=== PATIENT | female | born 1960 | race Caucasian/White ===

== ENCOUNTER 2017-02-15 18:49 | Observation (INO) ==
[2017-02-15] MEDS ORDERED: Sodium Chloride 0.9% 1,000 ML ONE (18:52)
[2017-02-15] MEDS ORDERED: HYDROmorphone 2 MG/1 ML ONE ×2 (18:53→20:47)
[2017-02-15] MEDS: HYDROmorphone 2 MG/1 ML IVP PRN ×3 (19:00→20:50)
[2017-02-15] MEDS ORDERED: Sodium Chloride 0.9% 1,000 ML PRIMARY IV ONE (21:16)
[2017-02-15] MEDS ORDERED: KETAMINE 100 MG/1 ML - 5 ML ONE (22:25)
[2017-02-15] MEDS ORDERED: fentaNYL Inj 100 MCG/2 ML VIAL ONE (22:26)
[2017-02-15] MEDS ORDERED: MIDAZOLAM 5 MG/1 ML ONE (22:26)
[2017-02-15] MEDS ORDERED: KETOROLAC 30 MG/1 ML VIAL ONE (23:30)
[2017-02-15] MEDS ORDERED: ONDANSETRON 4 MG/2 ML VIAL ONE (23:51)
[2017-02-15] MEDS ORDERED: Lactated Ringers 500 ML PRIMARY IV ONE (23:54)
[2017-02-16] MEDS ORDERED: methylPREDNISolone ACETATE 40 MG/1 ML VIAL IM ONE (00:22)
[2017-02-16] MEDS ORDERED: methylPREDNISolone 125 MG/2 ML VIAL ONE (00:23)
[2017-02-16] MEDS ORDERED: MIDAZOLAM 5 MG/1 ML ONE (01:09)
[2017-02-16] MEDS ORDERED: KETAMINE 100 MG/1 ML - 5 ML ONE (01:15)
[2017-02-16] MEDS ORDERED: LORazepam 1 MG TABLET PO PRN (02:07)
[2017-02-16] MEDS ORDERED: diphenhydrAMINE 25 MG CAPSULE PO PRN (02:40)
[2017-02-16] MEDS ORDERED: Ondansetron ODT Tab 8 MG TAB PO PRN (02:40)
[2017-02-16] MEDS ORDERED: CALCIUM CARBONATE 500 MG (TUMS) CHEWABLE TABLET PO PRN (02:40)
[2017-02-16] MEDS ORDERED: Prochlorperazine Tab 10 MG TAB PO PRN (02:40)
[2017-02-16] MEDS ORDERED: MAG HYDROX/AL HYDROX/SIMETH 30 ML SUSP PO PRN (02:40)
[2017-02-16] MEDS ORDERED: BISACODYL 5 MG TABLET PO PRN (02:40)
[2017-02-16] MEDS ORDERED: BISACODYL 10 MG SUPPOSITORY RECTAL PRN (02:40)
[2017-02-16] MEDS: HYDROmorphone 2 MG/1 ML IVP PRN ×8 (03:17→20:25)
[2017-02-16] MEDS: KETOROLAC 15 MG/1 ML VIAL IVP PRN ×3 (03:19→17:37)
[2017-02-16] MEDS: ONDANSETRON 4 MG/2 ML VIAL IVP PRN ×2 (03:19→17:36)
[2017-02-16] MEDS: HYDROmorphone 2 MG TABLET PO PRN ×2 (06:40→13:48)
--- NOTE | 2017-02-16 08:10 | ORTHO.PROG ---
Last Taken Vital Signs: Vital Signs - Last Taken Temperature 97.2 F 02/16/17 07:48 Pulse Rate 65 02/16/17 07:48 Respiratory Rate 16 02/16/17 07:48 Blood Pressure 100/60 02/16/17 07:48 Pulse Ox 99 02/16/17 07:48 Subjective: Patient notes pain feeling markedly better from last night after first reduction. She notes that she still has the numbness and tingling into the fingertips on the right. She notes some mild numbness of the ulnar nerve and median nerve. Normal on the left. She generally feels the pain on the right is worse than the pain on the left Objective: Examination shows that the patient's splints are in place she has no evidence of irritation from the splints. On the right hand she has extension of the digits passively with movement with flexion she seems to do fine on the lateral aspect of her she can extend but she complains of some discomfort dorsally with extension of the fingers. Actively was causes pain also. Sensory exam decreased the thumb through the small finger, brisk refill. Patient with some swelling of the fingers on the right. Very similar to last.. Examination left wrist show splint in place no evidence of irritation digits extension good flexion and sensory exam is intact. Patient with brisk refill. Radiographs which were obtained with the C-arm last PM show that the sugar tong splints are in place neutral alignment of the wrist on the AP views he seemed to be anatomically reduced and on the lateral there is some slight loss of volar tilt to neutral position bilaterally Assessment: Bilateral wrist fractures reduced. Patient in sugar tong splints with improved pain control Plan: At the current time patient will continue with the ice elevation sling use and see how she does with mobilization whether she requires IV medication. We'll check on her this afternoon and see how she progresses. Ice and elevation. We discussed potential surgical intervention but this may be something she wants to do at home town area. I would recommend CT scans for further evaluation. I don't think she could tolerate them at the current time.
[2017-02-16] MEDS: GABAPENTIN 300 MG CAPSULE PO SCH ×4 (08:15→21:10)
[2017-02-16] MEDS: PENTOSAN POLYSULFATE 100 MG PO SCH ×3 (08:16→20:35)
[2017-02-16] MEDS: DULOXETINE HCL 20 MG PO SCH (08:16)
--- NOTE | 2017-02-16 08:28 | CONSULT ---
Consult Note - Consult Consult Date: 02/16/17 Reason for Consult: PostOp Consulation : Ortho Requesting Physician: Dr. Hermosillo Primary Care Provider: DR MUKHERJEE IN TABLE - History of Present Illness History of Present Illness: This is a 56 years old female with past medical history significant for history of migraines, peripheral neuropathy and interstitial cystitis she is from [place] who was in [place] visiting, she fell yesterday backward and that caused bilateral wrist fractures. She had the reductions done last night she was complaining from severe pain post surgery Dr. Arana measured the pressure and was normal. Apparently she improved after that and she was admitted for observation. The hospitalist service were consulted for management of medical issues. Currently she still complaining from pain in both wrists she got some oral Dilaudid and Toradol earlier. She had some mild nausea yesterday. No other symptoms. Past Medical History Medical History: 1. Peripheral neuropathy she said it was secondary to Levaquin that she had for pneumonia. 2. Migraines. 3. Interstitial cystitis Surgical History: 1. Appendectomy. 2. Tonsillectomy. 3. C-sections. 4. Partial gastrectomy for bleeding ulcers. 5. Intestinal obstruction that needed surgery Family History: Reviewed an Not Pertinent Past Social History: Does not smoke, doesn't drink nor drugs. She is from [place] visiting a friend. 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 Tobacco Use: Former Smoker Substance Use Type: None Alcohol Use: None Review of Systems - Review of Systems All Systems: Reviewed & No Additional Complaints Except as Stated Medication / Allergies Home Medications: Home Medications Medication Instructions Recorded Confirmed Type Duloxetine HCl 20 mg PO DAILY 02/16/17 02/16/17 History Gabapentin [Neurontin] 300 mg PO BEDTIME 02/16/17 02/16/17 History Gabapentin [Neurontin] 600 mg PO TID 02/16/17 02/16/17 History Mirtazapine [Remeron] 15 mg PO DAILY 02/16/17 02/16/17 History Pentosan Polysulfate Sodium 100 mg PO TID 02/16/17 02/16/17 History [Elmiron] Allergies/Adverse Reactions: Allergies Allergy/AdvReac Type Severity Reaction Status Date / Time levofloxacin [From Levaquin] Allergy Anaphylaxis Verified 02/16/17 06:21 Penicillins Allergy Anaphylaxis Verified 02/16/17 06:21 codeine AdvReac Intermediate VOMITING Verified 02/16/17 06:21 cefaclor [From Ceclor] AdvReac HIVES Verified 02/16/17 06:21 erythromycin base AdvReac VOMITING Verified 02/16/17 06:21 nitrofurantoin AdvReac HIVES Verified 02/16/17 06:21 macrocrystalline [From Macrodantin] Exam - Vitals Vital Signs: Vital Signs Temperature 97.2 F Temperature Source Temporal Artery Scan Pulse Rate [Pulse Oximeter 65 Right] Respiratory Rate 16 Blood Pressure [Left Calf] 100/60 Pulse Ox 99 Oxygen Flow Rate 3 Oxygen Delivery Method Nasal Cannula Height 5 ft 5 in Weight 142 lb - General General Appearance: POSITIVE: No Acute Distress, Cooperative, Thin - Head Head Exam: POSITIVE: Normal Inspection - Eye Eye Exam: POSITIVE: Normal Appearance - ENT ENT Exam: POSITIVE: Normal Exam - Neck Neck Exam: POSITIVE: Normal Inspection - Respiratory Respiratory Exam: POSITIVE: Clear to Auscultation - Bilaterally - Cardiovascular Cardiovascular Exam: POSITIVE: RRR - GI/Abdominal GI/Abdominal Exam: POSITIVE: Normal Bowel Sounds, Non Tender, Non Distended, Soft - Rectal Rectal Exam: POSITIVE: Deferred - External Exam: POSITIVE: Deferred - Extremities Additional Extremities Exam Details: Both the forearms and splints. Complain from decreased sensation in the right thumb. - Neurological Neurological Exam: POSITIVE: Alert, CN II-XII Intact, No Facial Droop, Speech Intact / Clear - Psychiatric Psychiatric Exam: POSITIVE: Normal Affect - Integumentary Integumentary Exam: POSITIVE: Normal Color Assessment and Plan - Patient Problems (1) Wrist fracture, bilateral Current Visit: Yes Status: Acute Comment: She status post reduction. Continue current pain medications. Will discuss with Dr. Hermosillo but likely she'll stay another night to make sure her pain is controlled and maybe home tomorrow. (2) Peripheral neuropathy Current Visit: Yes Status: Acute Comment: Continue previous medications. (3) Interstitial cystitis Current Visit: Yes Status: Acute Comment: Continue same medications
[2017-02-16] MEDS ORDERED: Mirtazapine Tab 15 MG TAB PO SCH (09:00)
--- NOTE | 2017-02-16 10:32 | CRNA.PROGR ---
Anesthesia Note Anesthesia Progress Note: Awake, being fed by "friend". No nausea. Still rates pain in Right wrist an 8 out of 10. Planning on going to [facility] for further treatment of wrist injuries.
[2017-02-16] MEDS: Lactated Ringers 1,000 ML PRIMARY IV SCH ×2 (11:13→20:27)
--- NOTE | 2017-02-16 19:07 | ORTHO.PROG ---
Last Taken Vital Signs: Vital Signs - Last Taken Temperature 99.2 F 02/16/17 18:59 Pulse Rate 76 02/16/17 18:59 Respiratory Rate 20 02/16/17 18:59 Blood Pressure 100/45 02/16/17 18:59 Pulse Ox 96 02/16/17 18:59 Subjective: Patient notes that she still has pain but was doing better in the morning seems to be a little bit more uncomfortable this afternoon since she's been up moving around. She notes movement of the fingers has improved her sensory exam on the left hand is pretty much normal she notes the small finger and ring finger are almost a pretty much back to normal she still has a symptoms into the thumb index and middle finger. She notes a swelling is coming down and her motion has improved. Objective: Examination shows that her swelling of the right hand has improved he still is some swelling of the fingers of left hand no significant swelling splint is in place. She has good motion of the fingers on the left on the right she has good extension and she can flex at the limits of the splint. She has pretty much sensation in the small finger some slight decreased sensation on the radial aspect of the ring finger but improved as well as the middle finger and index finger and thumb but still quite a limited. She has good motion of the thumb. Brisk refill. There is no evidence of passive stretch pain. Examination shows that her hip has good range of motion she can actively internal/external rotated but she complains of some discomfort when she internally rotates the hip in the groin region in the buttock region. Motor and sensory exam is nonfocal. Internal rotation is about 30 of external rotation is about 40. Assessment: Bilateral wrist fractures with median nerve contusion on right Plan: Patient is still requiring IV medication for pain control she is quite wide- awake with normal vital signs with the doses of the IV medication. Patient seems quite comfortable and good movement of the fingers and examination with her pain level at 7. We will obtain AP pelvis and an AP and frog of the right hip. Possible CT scan of the upper extremities. We will see about options for home health if she gets discharged home on Tuesday or tomorrow. As a discussed with the patient we would need to have her off IV narcotics prior to being able to discharge her home
[2017-02-16] MEDS: LORazepam 1 MG TABLET PO PRN (20:36)
[2017-02-16] MEDS ORDERED: GABAPENTIN 300 MG CAPSULE PO SCH (21:00)
[2017-02-17] MEDS: HYDROmorphone 2 MG/1 ML IVP PRN ×5 (01:31→13:25)
[2017-02-17] MEDS: Lactated Ringers 1,000 ML PRIMARY IV SCH ×4 (05:54→17:18)
[2017-02-17] MEDS: ACETAMINOPHEN 325 MG TABLET PO PRN (05:54)
[2017-02-17] MEDS: HYDROmorphone 2 MG TABLET PO PRN ×4 (06:53→21:04)
[2017-02-17] MEDS: KETOROLAC 15 MG/1 ML VIAL IVP PRN ×2 (08:07→17:36)
--- NOTE | 2017-02-17 08:13 | DI ---
AP PELVIS and RIGHT HIP, 02/17/2017 7:00 AM: Clinical History: Right hip pain. Injury to the right hip. The patient fell. Previous Exam: None at this facility. There is no soft tissue abnormality. The bony structures of the pelvis are normal. 2 views of the rig ht hip are normal. Reading: Normal right hip exam. The AP pelvis view is unremarkable.
[2017-02-17 08:34] LABS: BASOPHILS # (AUTO) 0.04 10*3/UL; BASOPHILS % (AUTO) 0.7 % (0-1); EOSINOPHILS # (AUTO) 0.02 10*3/UL; EOSINOPHILS % (AUTO) 0.4 % (0-8); Hematocrit [HCT] 28.7 % (37.0-47.0); Hemoglobin [HGB] 8.9 g/dL (12.0-16.0); LYMPHOCYTES # (AUTO) 1.45 10*3/uL; MEAN CORPUSCULAR HEMOGLOBIN 28.6 PG (27-31); MEAN CORPUSCULAR VOLUME 92.3 FL (81-99); MEAN PLATELET VOLUME 9.5 FL (7.4-12.2); MONOCYTES # (AUTO) 0.44 10*3/UL (0.3-0.8); MONOCYTES % (AUTO) 8.1 % (5-15); NEUTROPHILS # (AUTO) 3.44 10*3/UL; NEUTROPHILS % (AUTO) 63.7 % (50-80); RED BLOOD COUNT 3.11 10^6/uL (4.20-5.40)
[2017-02-17 08:41] LABS: PLATELET MORPHOLOGY COMMENT NORMAL MORPHOLOGY (NORM); RBC MORPHOLOGY COMMENT NORMAL MORPHOLOGY (NORM); WBC MORPHOLOGY COMMENT NORMAL MORPHOLOGY (NORM)
[2017-02-17 09:00] LABS: BLOOD UREA NITROGEN 15 mg/dL (7-22); SERUM ALBUMIN 2.4 g/dL (3.5-4.8)
--- NOTE | 2017-02-17 09:15 | PDOC(PROG) ---
Date and Time of Service: 02/17/2017 9:12 AM Interval History: Subjective Patient continued to have pain in her wrists she is getting pain medication. Setting some headaches he said also. No bowel movement yet. Denying shortness of breath. She lives alone in [place]. Objective : Data - Labs CBC and BMP: 02/17/17 08:30 02/17/17 08:30 Labs - Last 24 Hours: Laboratory Results 02/17/17 Range/Units 08:30 WBC 5.40 (4.8-10.8) 10^3/uL RBC 3.11 L (4.20-5.40) 10^6/uL Hgb 8.9 L (12.0-16.0) g/dL Hct 28.7 L (37.0-47.0) % MCV 92.3 (81-99) FL MCH 28.6 (27-31) PG MCHC 31.0 L (33-37) g/dL RDW Std Deviation 47.1 (39-50) fL RDW Coeff of Sharon 14.5 (11.5-14.5) % Plt Count 232 (140-350) 10*3/uL MPV 9.5 (7.4-12.2) FL Immature Gran % (Auto) 0.2 (0-5) % Neut % (Auto) 63.7 (50-80) % Lymph % (Auto) 26.9 (10-50) % Rush % (Auto) 8.1 (5-15) % Eos % (Auto) 0.4 (0-8) % Baso % (Auto) 0.7 (0-1) % Immature Gran # (Auto) 0.01 10*3/UL Neut # (Auto) 3.44 10*3/UL Lymph # (Auto) 1.45 10*3/uL Rush # (Auto) 0.44 (0.3-0.8) 10*3/UL Eos # (Auto) 0.02 10*3/UL Baso # (Auto) 0.04 10*3/UL WBC Morphology Comment Normal morphology (NORM) Plt Morphology Comment Normal morphology (NORM) RBC Morph Comment Normal morphology (NORM) Sodium 136 (135-145) meq/L Potassium 3.4 L (3.8-5.2) meq/L Chloride 108 (98-112) meq/L Carbon Dioxide 22 L (23-33) meq/L Anion Gap 6 (5-20) BUN 15 (7-22) mg/dL Creatinine 0.6 (0.50-1.20) mg/dL Estimated GFR > 60 (>60 ml/min/1.73m(2)) BUN/Creatinine Ratio 25.00 H (6-20) Glucose 81 (78-110) mg/dL Calculated Osmolality 281.0 (267-292) mOsm/kg Calcium 8.0 L (8.7-10.7) mg/dL Total Bilirubin 0.4 (0.3-1.2) mg/dL AST 15 (8-39) IU/L ALT 27 (9-52) IU/L Alkaline Phosphatase 44 (38-126) IU/L Total Protein 4.3 L (6.1-8.0) g/dL Albumin 2.4 L (3.5-4.8) g/dL Globulin 1.9 L (2.50-4.10) g/dL Albumin/Globulin Ratio 1.20 L (1.3-2.0) mg/g Objective : Exam - General General Appearance: No Acute Distress, Cooperative - Head Head Exam: Normal Inspection, Atraumatic - Eye Eye Exam: Normal Appearance - ENT ENT Exam: Normal Exam - Neck Neck Exam: Normal Inspection - Respiratory Respiratory Exam: Clear to Auscultation - Bilaterally - Cardiovascular Cardiovascular Exam: RRR - Rectal Rectal Exam: Deferred - External Exam: Deferred - Extremities Additional Extremities Exam Details: Both forearms in splints - Neurological Neurological Exam: Alert, Oriented x 3, CN II-XII Intact - Psychiatric Psychiatric Exam: Normal Affect Assessment and Plan - Patient Problems (1) Wrist fracture, bilateral Current Visit: Yes Status: Acute Comment: Continue current pain medications. I did speak with the certified financial planner as the patient lives by herself in [place] she'll look into facilities for her until she has her surgery. She is booked for an appointment with the orthopedic physician tomorrow. She is having some headache will put on Fioricet. We'll check her labs today (2) Peripheral neuropathy Current Visit: Yes Status: Acute Comment: Continue previous medications (3) Interstitial cystitis Current Visit: Yes Status: Acute Comment: Same meds
[2017-02-17] MEDS: DULOXETINE HCL 20 MG PO SCH (09:20)
[2017-02-17] MEDS: Acet/Butalb/Caff 325-50-40 1 TAB TABLET PO PRN ×2 (09:56→17:43)
[2017-02-17] MEDS: GABAPENTIN 300 MG CAPSULE PO SCH ×4 (09:56→20:36)
[2017-02-17] MEDS: PENTOSAN POLYSULFATE 100 MG PO SCH ×3 (09:57→20:25)
--- NOTE | 2017-02-17 11:40 | PT.PROG ---
Progress Note Progress Note: S. Patient states that she is tired after working with OT however is willing to do gait training this morning. O. Patient ambulated 20 feet around her room and was left in bed with alarm and call light. A. Patient tolerated gait training well this morning, she was able to ambulate independently, she agreed to perform stair training in the afternoon. P. Patient performed gait training only this morning. If further therapy is needed Eval will be completed at time.
--- NOTE | 2017-02-17 14:21 | OT PM DAY ---
PM - Occupational Therapy S: It was reported by nursing that the patient was to be ordered two arm slings. O: The patient was given bilateral arm slings at this time. The patient was supine in bed and it was not appropriate to get her out of bed at this time due to fatigue and being on so much medication. This was reported to nursing and they stated that they would don slings when appropriate. A: Nursing states they will don slings when appropriate. P: Nursing will don slings on patient when appropriate. JASD
--- NOTE | 2017-02-17 14:42 | OTI REPORT ---
Thank you for the referral of Anne Paul was seen on 02/17/17 for an occupational therapy inpatient evaluation secondary to bilateral wrist fractures. SUBJECTIVE: The patient is a 56-year-old female who is being seen secondary to falling and breaking both of her wrists. The patient lives in [place], [place] by herself. She states typically she does things on her own and independently. She states she is having a lot of pain in both hands. She states she can move her left elbow more than her right, even though she is right handed. The patient's main concern this morning were her eating abilities. PAST MEDICAL HISTORY: Past medical history can be found in the patient's medical record. OBJECTIVE FINDINGS: Activities of daily living: The patient requires max assist with a lot of different activities. At this point the patient can not bring her hand to her mouth or manipulate utensils. The patient is also having difficulty with toileting activities. Today the patient was educated on how to use toilet tongs. We had to adapt them and we had the patient practice putting toilet paper in the tongs. The patient could not use the upper part of the tongs but was able to manipulate it using the center point of the tongs to get the toilet paper. We simulated using this for cleansing self. A universal cuff was made for the patient's left hand. It was custom fit for her brace as well as her thumb area. We also put a trough in the bottom of the universal cuff so that she could slide forks and spoons in and out as well as her toothbrush. The patient practiced putting items in and out of the universal cuff. It does take her increased time, but she is able to do this. We did try a water proof arm cuff, but it was too small to fit around the temporary casts at this point in time. The patient will need to have a waterproof bag and tape it on her arm. ASSESSMENT: Problem List: Patient will need to be educated on different adaptive devices Short-Term Goals: To be met by discharge from inpatient: Patient will be able to eat a full meal using the universal cuff. Patient will be able to use toilet tongs in order to complete toilet hygiene independently. Patient will be able to dress self independently. Long-Term Goals: To be met following discharge from inpatient: Patient will return home, being able to complete simple ADLs with adaptive devices independently for increased independence and safety at home. TREATMENT PLAN: Patient will be seen B.I.D during the week and one time per day over the weekend as an inpatient to address the above goals and objectives. The patient may benefit from some home health services and possibly meals on wheels once she returns home. INITIAL TREATMENT: Treatment today consisted of the initial evaluation. The patient was then brought back to her room. This afternoon we will continue education on any adaptive devices that may assist her with her ADLs at home. IRMA
[2017-02-17] MEDS: NORMAL SALINE 10 ML SYRINGE FLUSH IVP PRN (17:37)
[2017-02-17] MEDS: Potassium Chloride Tab 10 MEQ TAB PO SCH ×2 (17:39→20:25)
--- NOTE | 2017-02-17 18:12 | DI ---
CT SCAN OF THE LEFT WRIST, 02/17/2017 9:09 AM : Clinical History: Left intra-articular wrist fracture. Scans are obtained from the the distal radius and ulna to the proximal portions of the metacarpal bon es without IV contrast. Sagittal and coronal reformatted images are also generated. There is diffuse osteoporosis. There is an impacted and dorsally angulated fracture of the distal rad ius with intra-articular involvement along the dorsomedial surface. The estimated articular surface i nvolvement is probably 10%. The distal radial articular surface is dorsally angulated approximately 1 5 degrees. There is buckling of the cortical dorsal surface of the distal radius. More proximal to th is focus of buckling and fragmentation, there is actually a split in the cortical bone with displacem ent dorsally of the periosteal surface and displacement ventrally of the endosteal surface. This may lead to instability because of the functionally "thin" bone on the dorsal and distal surface of the r adius. No fractures of the carpal bones are present. There is a nondisplaced fracture of the ulnar st yloid. There is widening of the distance between the scaphoid and lunate bone suggesting there may be injury to the scapholunate ligament. READIN. There is an intra-articular fracture of the distal radius with an estimated 10% articular surface involvement along the dorsomedial aspect. The distal radial articular surface is dorsally angulated approximately 15 degrees. The dorsal cortical surface of the distal radius is buckled and proximal to this site of buckling, the cortex of the dorsal radial bone is split. The endosteal surface is displ aced volarly and the parosteal surface of the bone is displaced dorsally. Therefore the thin perioste al component extends to the site of buckling and this may lead to instability because of the decrease d and thin amount of cortical bone in this location. 2. There is a nondisplaced fracture of the ulnar styloid. There may be injury to the scapholunate li gament. 3. Severe osteoporosis.
[2017-02-17] MEDS: LORazepam 1 MG TABLET PO PRN (20:25)
[2017-02-17] MEDS: Mirtazapine Tab 15 MG TAB PO SCH (20:25)
--- NOTE | 2017-02-17 20:54 | ORTHO.PROG ---
Last Taken Vital Signs: Vital Signs - Last Taken Temperature 97.0 F 02/17/17 20:34 Pulse Rate 70 02/17/17 20:34 Respiratory Rate 16 02/17/17 20:34 Blood Pressure 125/65 02/17/17 20:34 Pulse Ox 93 02/17/17 20:34 Subjective: Patient's pain has decreased she is using less IV narcotics. Patient's motion in the fingers has improved both on the right and left. Patient notes her sensory exam is improved on the right hand also acceptable thumb. Objective: Swelling in the right and left hand has improved left hand minimal with good motion of the digits right hand limited finger motion that has pain particularly over the proximal phalanx of the middle finger sensory exam absent in the thumb but generally improving and the other median nerve distribution and ulnar nerve distribution is normal. Radiographs of the hip which were obtained show that the patient has no evidence of a fracture of the hip. Examination of the hip shows good movement with no significant pain or discomfort. Patient with no evidence irritation proximally and distally above the splint so. CT scan of the left wrist which shows an intra-articular component generally shows that the fracture is reasonably well reduced the radial inclination is good there is no radial shaft articular surfaces are congruent there is some mild flattening of the volar tilt to neutral position or so but otherwise reasonable position. Laboratory Results 02/17/17 Range/Units 08:30 WBC 5.40 (4.8-10.8) 10^3/uL RBC 3.11 L (4.20-5.40) 10^6/uL Hgb 8.9 L (12.0-16.0) g/dL Hct 28.7 L (37.0-47.0) % MCV 92.3 (81-99) FL MCH 28.6 (27-31) PG MCHC 31.0 L (33-37) g/dL RDW Std Deviation 47.1 (39-50) fL RDW Coeff of Sharon 14.5 (11.5-14.5) % Plt Count 232 (140-350) 10*3/uL MPV 9.5 (7.4-12.2) FL Immature Gran % (Auto) 0.2 (0-5) % Neut % (Auto) 63.7 (50-80) % Lymph % (Auto) 26.9 (10-50) % Dane % (Auto) 8.1 (5-15) % Eos % (Auto) 0.4 (0-8) % Baso % (Auto) 0.7 (0-1) % Immature Gran # (Auto) 0.01 10*3/UL Neut # (Auto) 3.44 10*3/UL Lymph # (Auto) 1.45 10*3/uL Dane # (Auto) 0.44 (0.3-0.8) 10*3/UL Eos # (Auto) 0.02 10*3/UL Baso # (Auto) 0.04 10*3/UL WBC Morphology Comment Normal morphology (NORM) Plt Morphology Comment Normal morphology (NORM) RBC Morph Comment Normal morphology (NORM) Sodium 136 (135-145) meq/L Potassium 3.4 L (3.8-5.2) meq/L Chloride 108 (98-112) meq/L Carbon Dioxide 22 L (23-33) meq/L Anion Gap 6 (5-20) BUN 15 (7-22) mg/dL Creatinine 0.6 (0.50-1.20) mg/dL Estimated GFR > 60 (>60 ml/min/1.73m(2)) BUN/Creatinine Ratio 25.00 H (6-20) Glucose 81 (78-110) mg/dL Calculated Osmolality 281.0 (267-292) mOsm/kg Calcium 8.0 L (8.7-10.7) mg/dL Total Bilirubin 0.4 (0.3-1.2) mg/dL AST 15 (8-39) IU/L ALT 27 (9-52) IU/L Alkaline Phosphatase 44 (38-126) IU/L Total Protein 4.3 L (6.1-8.0) g/dL Albumin 2.4 L (3.5-4.8) g/dL Globulin 1.9 L (2.50-4.10) g/dL Albumin/Globulin Ratio 1.20 L (1.3-2.0) mg/g Assessment: Patient with bilateral wrist fractures overall in reasonable position Anemia identified with blood draw by hospitalist today Plan: Patient will be weaned from the IV narcotic pain medication. The tentative plan was to have the patient discharged to rehabilitation facility for teaching mobilization techniques and trying to regain ability for ADLs. She also needs follow-up with an orthopedic locally for further care and treatment. This may be a reasonable option for fixation and stabilization of at least one of the wrist fractures which would allow her to again and elbow back and hopefully to be more functional. This would best be done in her hometown area where she can have a regular and appropriate follow-up with the operating surgeon if this is the recommended treatment. We will continue to work without try to get the patient placed.
[2017-02-18] MEDS: NORMAL SALINE 10 ML SYRINGE FLUSH IVP PRN ×2 (00:29→13:14)
[2017-02-18] MEDS: HYDROmorphone 2 MG/1 ML IVP PRN ×5 (00:29→20:10)
[2017-02-18] MEDS: Acet/Butalb/Caff 325-50-40 1 TAB TABLET PO PRN ×2 (00:29→10:05)
[2017-02-18] MEDS: HYDROmorphone 2 MG TABLET PO PRN ×4 (04:35→19:08)
[2017-02-18] MEDS: KETOROLAC 15 MG/1 ML VIAL IVP PRN ×3 (06:33→19:38)
--- NOTE | 2017-02-18 08:07 | PDOC(PROG) ---
Date and Time of Service: 02/18/2017 8 AM Interval History: Subjective Patient care continue to complain from pain in both wrists she rates her pain at times a goes down to 6 with pain medications. She did walk with physical therapy yesterday. They're helping her arranging for adaptive devices so that she can feed herself. Objective : Data - Labs CBC and BMP: 02/17/17 08:30 02/17/17 08:30 Labs - Last 24 Hours: Laboratory Results 02/17/17 Range/Units 08:30 WBC 5.40 (4.8-10.8) 10^3/uL RBC 3.11 L (4.20-5.40) 10^6/uL Hgb 8.9 L (12.0-16.0) g/dL Hct 28.7 L (37.0-47.0) % MCV 92.3 (81-99) FL MCH 28.6 (27-31) PG MCHC 31.0 L (33-37) g/dL RDW Std Deviation 47.1 (39-50) fL RDW Coeff of Sharon 14.5 (11.5-14.5) % Plt Count 232 (140-350) 10*3/uL MPV 9.5 (7.4-12.2) FL Immature Gran % (Auto) 0.2 (0-5) % Neut % (Auto) 63.7 (50-80) % Lymph % (Auto) 26.9 (10-50) % [place] % (Auto) 8.1 (5-15) % Eos % (Auto) 0.4 (0-8) % Baso % (Auto) 0.7 (0-1) % Immature Gran # (Auto) 0.01 10*3/UL Neut # (Auto) 3.44 10*3/UL Lymph # (Auto) 1.45 10*3/uL [place] # (Auto) 0.44 (0.3-0.8) 10*3/UL Eos # (Auto) 0.02 10*3/UL Baso # (Auto) 0.04 10*3/UL WBC Morphology Comment Normal morphology (NORM) Plt Morphology Comment Normal morphology (NORM) RBC Morph Comment Normal morphology (NORM) Sodium 136 (135-145) meq/L Potassium 3.4 L (3.8-5.2) meq/L Chloride 108 (98-112) meq/L Carbon Dioxide 22 L (23-33) meq/L Anion Gap 6 (5-20) BUN 15 (7-22) mg/dL Creatinine 0.6 (0.50-1.20) mg/dL Estimated GFR > 60 (>60 ml/min/1.73m(2)) BUN/Creatinine Ratio 25.00 H (6-20) Glucose 81 (78-110) mg/dL Calculated Osmolality 281.0 (267-292) mOsm/kg Calcium 8.0 L (8.7-10.7) mg/dL Total Bilirubin 0.4 (0.3-1.2) mg/dL AST 15 (8-39) IU/L ALT 27 (9-52) IU/L Alkaline Phosphatase 44 (38-126) IU/L Total Protein 4.3 L (6.1-8.0) g/dL Albumin 2.4 L (3.5-4.8) g/dL Globulin 1.9 L (2.50-4.10) g/dL Albumin/Globulin Ratio 1.20 L (1.3-2.0) mg/g Objective : Exam - General General Appearance: No Acute Distress, Cooperative - Head Head Exam: Normal Inspection - Eye Eye Exam: Normal Appearance - ENT ENT Exam: Normal Exam - Neck Neck Exam: Normal Inspection - Respiratory Respiratory Exam: Clear to Auscultation - Bilaterally - Cardiovascular Cardiovascular Exam: RRR - GI/Abdominal GI/Abdominal Exam: Normal Bowel Sounds, Non Tender, Non Distended, Soft - Rectal Rectal Exam: Deferred - External Exam: Deferred - Extremities Additional Extremities Exam Details: Forearms and splints. - Neurological Neurological Exam: Alert, Oriented x 3, CN II-XII Intact, No Facial Droop - Psychiatric Psychiatric Exam: Normal Affect Assessment and Plan - Patient Problems (1) Wrist fracture, bilateral Current Visit: Yes Status: Acute Comment: The pain seemed to be not controlled well with the current dose of by mouth Dilaudid I think will increase the dosage may be would be able to DC the IV Dilaudid later on today. I did speak with the senior buyer planner yesterday she is still looking for a place for her to go, she lives alone and with the current status of the bilateral wrist fractures she would not be able to function at home. (2) Peripheral neuropathy Current Visit: Yes Status: Acute Comment: Continue gabapentin. (3) Interstitial cystitis Current Visit: Yes Status: Acute Comment: Same medications (4) Anemia Current Visit: Yes Status: Acute Comment: We did request B12/folate and ferritin, I did put her on multivitamins. I did inform her that this need to be followed up later on as an outpatient. (5) Hypokalemia Current Visit: Yes Status: Acute Comment: She is on replacement
[2017-02-18] MEDS: Calcium/Vit D 600mg/400u Tab 1 TAB TABLET PO SCH ×2 (08:35→20:08)
[2017-02-18] MEDS: GABAPENTIN 300 MG CAPSULE PO SCH ×4 (08:36→20:39)
[2017-02-18] MEDS: PENTOSAN POLYSULFATE 100 MG PO SCH ×3 (08:36→20:09)
[2017-02-18] MEDS: DOCUSATE 100 MG CAPSULE PO SCH ×2 (08:36→20:09)
[2017-02-18] MEDS: Multivitamin Tab 1 TAB PO SCH (08:36)
[2017-02-18] MEDS: Potassium Chloride Tab 10 MEQ TAB PO SCH ×2 (08:39→20:09)
[2017-02-18] MEDS: DULOXETINE HCL 20 MG PO SCH (09:01)
--- NOTE | 2017-02-18 14:16 | PT PM DAY ---
Diagnosis : Bilateral Wrist Fractures PM - Physical Therapy S: Patient believes that she will be discharged and transferred to the facility down in [place], closer to her home. Patient is stating that she is not able to take care of herself due to having both upper extremities in casts. The patient also states her hip is still sore but she feels can she walk safely without any assistive advice. O: Today's therapy consists of gait training up and down stairs on even and uneven surfaces with gait belt, and contact guard to standby assistance as well as verbal cues for proper step to gait pattern due to pain provocation in right hip. A: With the proper verbal cues the patient was able to ascend and descend a flight of stairs with her greatest difficulty in regards to ambulation being pain in her right hip as well as apprehension with descending stairs for fear of falling. P: Continue seeing patient BID during the week and one time per day over the weekend for transfers, ambulation, and range of motion/strengthening exercises. IRMA
[2017-02-18] MEDS: ACETAMINOPHEN 325 MG TABLET PO PRN (16:37)
[2017-02-18] MEDS: Mirtazapine Tab 15 MG TAB PO SCH (20:09)
[2017-02-18] MEDS: LORazepam 1 MG TABLET PO PRN (20:09)
--- NOTE | 2017-02-18 20:56 | ORTHO.PROG ---
Last Taken Vital Signs: Vital Signs - Last Taken Temperature 98.8 F 02/18/17 17:00 Pulse Rate 66 02/18/17 19:00 Respiratory Rate 18 02/18/17 19:00 Blood Pressure 144/74 02/18/17 17:00 Pulse Ox 94 02/18/17 17:00 Subjective: Patient seems to be doing better but notes swelling in the hand. She complains of right middle finger pain in the proximal phalanx region also notes some throbbing in both wrists. Notes she has some swelling in her fingers. Patient frustrated that unable to be accepted for rehabilitation in [place]. Objective: Examination shows patient has bilateral upper extremity sugar tong splints. These were rewrapped because she complained of some tightness the splint was not removed. Patient on the left has good mobility to the fingers she has normal sensory exam of the left hand on the right hand she has normal sensory of the ring finger or small finger improved sensation in the middle finger and index finger but decreased sensation on the thumb. She notes the thumb is quite numb. She has active motion of the thumb she can extend the digits on the right and she can gently flex to the limit of the splint on the right and left. Patient able to utilize her left hand well with a telephone call on his cell phone with utilization of the left arm are quite agile and accurate with movement of the fingers arm splint and hand. Right arm used as a miller. Lower extremity wishing generally good no marked pain and discomfort though she states she has a little discomfort in the right hip and groin region with movement of the leg. The symptoms are not marked and mild. Assessment: Bilateral wrist fractures Right hip pain x-rays of been negative, patient notes pain improving Plan: At the current time patient still requiring a considerable amount of IV Dilaudid medication in my opinion and also oral Dilaudid. I had a discussion with the patient in regards to use of IV narcotics and also oral narcotics. I would like to see her weaning off the IV narcotics and decreasing oral dosing. We will stop the Toradol after 3 days. We will continue to have her work with occupational therapy physical therapy mobilize and remove continued pumping of feet and mobilization. The goal is for the patient to be able to get in to a rehabilitation facility in [place] and be able to follow up with a local orthopedist for further care and treatment. Patient desires to be in the [facility] for future care and treatment.
[2017-02-19] MEDS: HYDROmorphone 2 MG TABLET PO PRN ×4 (05:01→18:48)
--- NOTE | 2017-02-19 08:21 | DI ---
HISTORY: Pain in the 3rd proximal phalanx. History of wrist fracture. COMPARISON: 02/15/2017. FINDINGS: Examination of the hand reveals no evidence of acute fracture. IMPRESSION: 1. No acute fracture.
[2017-02-19] MEDS: PENTOSAN POLYSULFATE 100 MG PO SCH ×3 (08:59→20:44)
[2017-02-19] MEDS: Multivitamin Tab 1 TAB PO SCH (08:59)
[2017-02-19] MEDS: GABAPENTIN 300 MG CAPSULE PO SCH ×4 (08:59→20:40)
[2017-02-19] MEDS: Calcium/Vit D 600mg/400u Tab 1 TAB TABLET PO SCH ×2 (08:59→20:40)
[2017-02-19] MEDS: Potassium Chloride Tab 10 MEQ TAB PO SCH ×2 (09:00→20:43)
[2017-02-19] MEDS: DOCUSATE 100 MG CAPSULE PO SCH ×2 (09:00→20:40)
[2017-02-19] MEDS: ACETAMINOPHEN 325 MG TABLET PO PRN ×2 (09:05→22:01)
[2017-02-19 09:27] LABS: Hemoglobin [HGB] 10.3 g/dL (12.0-16.0); MEAN CORPUSCULAR HEMOGLOBIN 29.6 PG (27-31); MEAN CORPUSCULAR HGB CONC 33.2 g/dL (33-37); MEAN CORPUSCULAR VOLUME 89.1 FL (81-99); MEAN PLATELET VOLUME 9.7 FL (7.4-12.2); RED BLOOD COUNT 3.48 10^6/uL (4.20-5.40)
[2017-02-19 09:43] LABS: BLOOD UREA NITROGEN 16 mg/dL (7-22); BUN/CREATININE RATIO 26.66 (6-20)
[2017-02-19] MEDS: DULOXETINE HCL 20 MG PO SCH (10:07)
[2017-02-19] MEDS ORDERED: CELECOXIB 200 MG CAPSULE PO ONE (14:19)
--- NOTE | 2017-02-19 15:22 | ORTHO.PROG ---
Last Taken Vital Signs: Vital Signs - Last Taken Temperature 98 F 02/19/17 14:31 Pulse Rate 79 02/19/17 14:31 Respiratory Rate 18 02/19/17 14:31 Blood Pressure 146/80 02/19/17 14:31 Pulse Ox 94 02/19/17 14:31 Subjective: Patient notes intermittent pain in the wrist does not have any IV narcotics since last PM, oral use has also decreased but is using a higher dose. Objective: Examination shows that the sensory changes of not been any different she does have some swelling to the fingers on the left and on the right also a little bit more interestingly on the left compared to the right. She has good digit motion of the left on the right she has digit motion no passive stretch pain and has motion to the limits of the splint sensory exam in the left is normal on the right ulnar nerve is normal median nerve still decreased sensation in the thumb. The patient complains of pain over the proximal etc. Radiographs showed no fracture the proximal phalanx these were done of the right hand. Assessment: Patient bilateral distal radius fractures in sugar tong splints. Median nerve contusion on the right improving slowly. Plan: Patient will continue to mobilize utilize the fingers and hands as possible. She would like to return to the [place] area but has been unable to get into a rehabilitation bed. This may be a potential issue moving forward and may require a custodial bed. We will await Tuesday when apparently the rehabilitation facility those last contacted by social worker clinical will be back in touch with us. The other option and best option if there were potential family members or friends who could help her at home until these are able to heel and potentially be put into a short arm cast around the 3 week murphy. We've talked about treatment and follow-up which the desires to have this done in [place].
--- NOTE | 2017-02-19 18:37 | PDOC(PROG) ---
Date and Time of Service: 02/19/2017, 1530 Interval History: still complains of pain in wrists bilaterally. no chest pain, no SOB. states she is concerned about her inability to eat or drink without assistance or use the bathroom without assistance. has a son, but he lives in [place] SO lives in [place], [place]. He would be willing to transport to SNF if placement can be achieved. Objective : Data - Labs CBC and BMP: 02/19/17 09:15 02/19/17 09:15 Labs - Last 24 Hours: Laboratory Results 02/19/17 02/19/17 Range/Units 09:15 09:20 WBC 4.89 (4.8-10.8) 10^3/uL RBC 3.48 L (4.20-5.40) 10^6/uL Hgb 10.3 L (12.0-16.0) g/dL Hct 31.0 L (37.0-47.0) % MCV 89.1 (81-99) FL MCH 29.6 (27-31) PG MCHC 33.2 (33-37) g/dL RDW Std Deviation 45.6 (39-50) fL RDW Coeff of Sharon 14.4 (11.5-14.5) % Plt Count 256 (140-350) 10*3/uL MPV 9.7 (7.4-12.2) FL Sodium 137 (135-145) meq/L Potassium 3.6 L (3.8-5.2) meq/L Chloride 106 (98-112) meq/L Carbon Dioxide 24 (23-33) meq/L Anion Gap 7 (5-20) BUN 16 (7-22) mg/dL Creatinine 0.6 (0.50-1.20) mg/dL Estimated GFR > 60 (>60 ml/min/1.73m(2)) BUN/Creatinine Ratio 26.66 H (6-20) Glucose 84 (78-110) mg/dL Calculated Osmolality 283.0 (267-292) mOsm/kg Calcium 8.6 L (8.7-10.7) mg/dL Ferritin 12.50 (12.00-336.70) ng/mL Objective : Exam - General General Appearance: No Acute Distress, Cooperative Additional General Exam Details: Vital Signs - Last Taken Temperature 98.6 F 02/19/17 16:29 Pulse Rate 76 02/19/17 16:29 Respiratory Rate 18 02/19/17 16:29 Blood Pressure 133/76 02/19/17 16:29 Pulse Ox 92 02/19/17 16:29 - Eye Eye Exam: No Scleral Icterus - ENT ENT Exam: Mucous Membranes Moist - Respiratory Respiratory Exam: Clear to Auscultation - Bilaterally, Breathing Non Labored - Cardiovascular Cardiovascular Exam: RRR, No Murmur, No Clicks, No Gallops, No Rubs, No JVD - GI/Abdominal GI/Abdominal Exam: Normal Bowel Sounds, Non Tender, Non Distended, Soft - Extremities Extremities Exam: No Clubbing Present, No Edema Present, No Cyanosis Present Additional Extremities Exam Details: wrists are splinted bilaterally after ortho did closed reductions bilaterally. distal neurovasculars appear intact - Neurological Neurological Exam: Alert, Oriented x 3, No Facial Droop, Speech Intact / Clear, Moves All Extremities Equally Assessment and Plan - Patient Problems (1) Peripheral neuropathy Current Visit: Yes Status: Acute Qualifiers: Peripheral neuropathy type: polyneuropathy, unspecified Qualified Description: Peripheral polyneuropathy Qualifier Code(s): (G62.9) Polyneuropathy, unspecified (2) Interstitial cystitis Current Visit: Yes Status: Acute (3) Hypokalemia Current Visit: Yes Status: Acute (4) Anemia Current Visit: Yes Status: Chronic Qualifiers: Anemia type: unspecified type Qualified Description: Anemia, unspecified type Qualifier Code(s): (D64.9) Anemia, unspecified (5) Wrist fracture, bilateral Current Visit: Yes Status: Acute Qualifiers: Encounter type: initial encounter Fracture type: closed Qualified Description: Closed fracture of both wrists, initial encounter Qualifier Code(s): (S62.101A) Fracture of unspecified carpal bone, right wrist, initial encounter for closed fracture, (S62.102A) Fracture of unspecified carpal bone, left wrist, initial encounter for closed fracture - Assessment / Plan Additional Assessment/Plan Details: add celebrex and percocet to pain regimen try for SNF placement on Tuesday She told me she takes neurontin 600 mg TID and 900 mg qHS (bedtime) and her migraine medication TID. I confirmed that this is accurate in the medical record on medication orders. continue OT fracture management as per ortho.
[2017-02-19] MEDS: CELECOXIB 200 MG CAPSULE PO SCH (20:42)
[2017-02-19] MEDS: Mirtazapine Tab 15 MG TAB PO SCH (20:43)
[2017-02-19] MEDS: NORMAL SALINE 10 ML SYRINGE FLUSH IVP PRN (20:45)
[2017-02-20] MEDS: oxyCODONE/APAP 7.5/325 Tab 1 TAB TAB PO PRN ×5 (00:20→16:53)
[2017-02-20] MEDS: Acet/Butalb/Caff 325-50-40 1 TAB TABLET PO PRN (06:35)
[2017-02-20] MEDS: GABAPENTIN 300 MG CAPSULE PO SCH ×4 (08:13→21:04)
[2017-02-20] MEDS: Calcium/Vit D 600mg/400u Tab 1 TAB TABLET PO SCH ×2 (08:13→21:04)
[2017-02-20] MEDS: Multivitamin Tab 1 TAB PO SCH (08:13)
[2017-02-20] MEDS: PENTOSAN POLYSULFATE 100 MG PO SCH ×3 (08:13→21:05)
[2017-02-20] MEDS: Potassium Chloride Tab 10 MEQ TAB PO SCH ×2 (08:14→21:04)
[2017-02-20] MEDS: DOCUSATE 100 MG CAPSULE PO SCH ×2 (08:14→21:04)
[2017-02-20] MEDS: CELECOXIB 200 MG CAPSULE PO SCH ×2 (08:14→21:03)
[2017-02-20] MEDS: DULOXETINE HCL 20 MG PO SCH (08:17)
[2017-02-20] MEDS ORDERED: GABAPENTIN 300 MG CAPSULE PO ONE (17:00)
--- NOTE | 2017-02-20 19:40 | ORTHO.PROG ---
Last Taken Vital Signs: Vital Signs - Last Taken Temperature 97 F 02/20/17 16:11 Pulse Rate 75 02/20/17 16:11 Respiratory Rate 17 02/20/17 16:11 Blood Pressure 145/88 02/20/17 16:11 Pulse Ox 93 02/20/17 16:11 Subjective: Patient is feeling better better movement of the fingers less pain and is controlled just on oral medications at the current time. Objective: Splints are in place there is no irritation proximally or distally. On the left hand she has good motion of the digits with normal sensory exam. Brisk refill. The right hand has limited swelling good motion of the digits normal ulnar sensation the ring and middle and index finger are normal thumb with some mild tingling but markedly improved. With motion of the hip some very mild soreness mostly in the buttock region where she has a bruise but does complain of some mild groin-type pain. Assessment: Bilateral wrist fractures overall doing well, right hip pain Plan: library services coordinator will continue to try to place the patient down near her home in [place] because she has significant limitations with both wrist fractures. As far as the right hip her symptoms seem to be very mild she gets up and mobilizes well but she does complain of a little discomfort which seems to be getting better every day. As a discussed with the patient at this worsens we may wish to look at an imaging study such as an MRI to rule out any evidence of a nondisplaced displaced issue but since it is continuing to get better every day will continue to observe this. Risks and benefits issues discussed and reviewed. Once patient has a facility which will be able to follow her and care for her I think we will need to set up a doctor's appointment with an orthopedist for follow-up
[2017-02-20] MEDS: NORMAL SALINE 10 ML SYRINGE FLUSH IVP PRN (19:46)
[2017-02-20] MEDS: KETOROLAC 15 MG/1 ML VIAL IVP PRN (19:46)
[2017-02-20] MEDS: Mirtazapine Tab 15 MG TAB PO SCH (21:04)
[2017-02-20] MEDS: oxyCODONE IR Tab 15 MG TAB PO PRN (21:04)
[2017-02-21] MEDS: oxyCODONE IR Tab 15 MG TAB PO PRN ×6 (01:05→20:48)
[2017-02-21] MEDS: Acet/Butalb/Caff 325-50-40 1 TAB TABLET PO PRN ×2 (02:08→17:09)
[2017-02-21] MEDS: Potassium Chloride Tab 10 MEQ TAB PO SCH ×2 (08:20→20:49)
[2017-02-21] MEDS: CELECOXIB 200 MG CAPSULE PO SCH ×2 (08:20→20:49)
[2017-02-21] MEDS: PENTOSAN POLYSULFATE 100 MG PO SCH ×3 (08:20→20:49)
[2017-02-21] MEDS: GABAPENTIN 300 MG CAPSULE PO SCH ×4 (08:20→20:48)
[2017-02-21] MEDS: Calcium/Vit D 600mg/400u Tab 1 TAB TABLET PO SCH ×2 (08:21→20:49)
[2017-02-21] MEDS: DOCUSATE 100 MG CAPSULE PO SCH ×2 (08:21→20:49)
[2017-02-21] MEDS: Multivitamin Tab 1 TAB PO SCH (08:37)
[2017-02-21] MEDS: DULOXETINE HCL 20 MG PO SCH (08:38)
[2017-02-21] MEDS ORDERED: ERGOCALCIFEROL 50,000 IU CAPSULE PO ONE (09:46)
[2017-02-21] MEDS ORDERED: DIAZEPAM 10 MG/2 ML (5 MG/1 ML) CARPUJECT IVP PRN (11:57)
[2017-02-21] MEDS: NORMAL SALINE 10 ML SYRINGE FLUSH IVP PRN (12:37)
[2017-02-21] MEDS ORDERED: DIAZEPAM 10 MG TABLET PO PRN (13:51)
--- NOTE | 2017-02-21 13:57 | PDOC(PROG) ---
Date and Time of Service: 02/20/2017, 1200 Interval History: No chest pain and no shortness breath. The patient discussed in detail with me that she had some narcotic addiction issues in the past but has been off of narcotics for a significant amount of time and that she has a high tolerance. She continues to complain of wrist pain. Bilaterally. Swelling does appear to have gone down some what. No nausea or vomiting. Objective : Data - Labs CBC and BMP: 02/19/17 09:15 02/19/17 09:15 Labs - Last 24 Hours: Laboratory Results 02/19/17 Range/Units 09:20 Vitamin B12 536 (239-931) pg/mL Vitamin D 25-Hydroxy 16.3 L (30-100) NG/ML Serum Folate 18.4 (2.76-20.0) NG/ML Objective : Exam - General General Appearance: No Acute Distress, Cooperative - Head Head Exam: Normal Inspection, Normocephalic, Atraumatic - Eye Eye Exam: No Scleral Icterus - ENT ENT Exam: Mucous Membranes Moist - Respiratory Respiratory Exam: Clear to Auscultation - Bilaterally, Breathing Non Labored - Cardiovascular Cardiovascular Exam: RRR, No Murmur, No Clicks, No Gallops, No Rubs, No JVD - GI/Abdominal GI/Abdominal Exam: Normal Bowel Sounds, Non Tender, Non Distended, Soft - Extremities Extremities Exam: No Clubbing Present, No Edema Present, No Cyanosis Present Additional Extremities Exam Details: Distal neurovascular appeared intact. Both wrists are splinted - Neurological Neurological Exam: Alert, Oriented x 3, No Facial Droop, Speech Intact / Clear, Moves All Extremities Equally Assessment and Plan - Patient Problems (1) Peripheral neuropathy Current Visit: Yes Status: Acute Qualifiers: Peripheral neuropathy type: polyneuropathy, unspecified Qualified Description: Peripheral polyneuropathy Qualifier Code(s): (G62.9) Polyneuropathy, unspecified (2) Interstitial cystitis Current Visit: Yes Status: Acute (3) Hypokalemia Current Visit: Yes Status: Resolved (4) Anemia Current Visit: Yes Status: Chronic Qualifiers: Anemia type: unspecified type Qualified Description: Anemia, unspecified type Qualifier Code(s): (D64.9) Anemia, unspecified (5) Wrist fracture, bilateral Current Visit: Yes Status: Acute Qualifiers: Encounter type: initial encounter Fracture type: closed Qualified Description: Closed fracture of both wrists, initial encounter Qualifier Code(s): (S62.101A) Fracture of unspecified carpal bone, right wrist, initial encounter for closed fracture, (S62.102A) Fracture of unspecified carpal bone, left wrist, initial encounter for closed fracture - Assessment / Plan Additional Assessment/Plan Details: No major changes from Hospital size. Continue to pursue placement. Likely will need senior care facility for ADLs in particular until her wrists are healed.
--- NOTE | 2017-02-21 14:02 | PDOC(PROG) ---
Date and Time of Service: 02/13/2017, 1400 Interval History: Patient seen and evaluated earlier. We had long discussions regarding patient' s expectations for plan. Ultimately, she is agreeable to trying to get up facility placement for alf facility in activity of daily living assistance. She will work with PT and OT and concentrate on things such as dressing herself, helping her sulfate, and toileting. In the meantime, she complains of bilateral wrist pain without significant improvement. Her swelling has notably gone down however and she has more movement of her fingers bilaterally. No chest pain and no shortness breath. We were able to arrange an orthopedic appointment with her. We will talk to her about her vitamin D deficiency. Objective : Data - Labs CBC and BMP: 02/19/17 09:15 02/19/17 09:15 Labs - Last 24 Hours: Laboratory Results 02/19/17 Range/Units 09:20 Vitamin B12 536 (239-931) pg/mL Vitamin D 25-Hydroxy 16.3 L (30-100) NG/ML Serum Folate 18.4 (2.76-20.0) NG/ML Objective : Exam - General General Appearance: No Acute Distress, Cooperative Additional General Exam Details: Vital Signs - Last Taken Temperature 98 F 02/21/17 11:11 Pulse Rate 90 02/21/17 11:11 Respiratory Rate 18 02/21/17 11:11 Blood Pressure 123/66 02/21/17 11:11 Pulse Ox 91 02/21/17 11:11 Blood pressures overall appear more controlled. She does have some occasional readings in the 140s systolic. - Eye Eye Exam: No Scleral Icterus - ENT ENT Exam: Mucous Membranes Moist - Respiratory Respiratory Exam: Clear to Auscultation - Bilaterally, Breathing Non Labored - Cardiovascular Cardiovascular Exam: RRR, No Murmur, No Clicks, No Gallops, No Rubs, No JVD - GI/Abdominal GI/Abdominal Exam: Normal Bowel Sounds, Non Tender, Non Distended, Soft - Extremities Extremities Exam: No Clubbing Present, No Edema Present, No Cyanosis Present Additional Extremities Exam Details: Swelling reduced and hands bilaterally. Bilateral wrist sprints intact, no signs of compartment syndrome. - Neurological Neurological Exam: Alert, Oriented x 3, No Facial Droop, Speech Intact / Clear, Moves All Extremities Equally Assessment and Plan - Patient Problems (1) Peripheral neuropathy Current Visit: Yes Status: Acute Qualifiers: Peripheral neuropathy type: polyneuropathy, unspecified Qualified Description: Peripheral polyneuropathy Qualifier Code(s): (G62.9) Polyneuropathy, unspecified (2) Vitamin D deficiency Current Visit: Yes Status: Acute (3) Interstitial cystitis Current Visit: Yes Status: Acute (4) Anemia Current Visit: Yes Status: Chronic Qualifiers: Anemia type: unspecified type Qualified Description: Anemia, unspecified type Qualifier Code(s): (D64.9) Anemia, unspecified (5) Wrist fracture, bilateral Current Visit: Yes Status: Acute Qualifiers: Encounter type: initial encounter Fracture type: closed Qualified Description: Closed fracture of both wrists, initial encounter Qualifier Code(s): (S62.101A) Fracture of unspecified carpal bone, right wrist, initial encounter for closed fracture, (S62.102A) Fracture of unspecified carpal bone, left wrist, initial encounter for closed fracture - Assessment / Plan Additional Assessment/Plan Details: We're working very hard at getting the patient in alf facility in [place], [place]. We do have transport in that the patient's significant other or man that she's bleeding, Gael, is willing to transport her down. We obtained an orthopedic consultation for a [address] Moore, and he is a hand specialist. That is at 1:00. Phone #[phone] Patient stated to me that she was on Valium 3 times a day when necessary for muscle spasms due to her peripheral neuropathy and I resumed that. Replace vitamin D and discussed the diagnosis with her.
--- NOTE | 2017-02-21 15:26 | OT PM DAY ---
Diagnosis : Bilateral Wrist Fractures PM - Occupational Therapy S: The patient reports that she is trying to get to [facility] as soon as possible to have an appointment with Dr. Urrutia who is part of the [facility] in [facility] where the patient lives. The patient reports that she has spoken with Dr. Hermosillo and he spoke to her about having surgery on both of her wrists; the right is worse than the left. Prior to admission the patient lived at home by herself and completed all activities of daily living on her own. At this point in time it has been very difficult for the patient to complete simple ADLs. O: FIM LEVELS: Eating: The patient requires mod assistance. She can use her left hand for finger foods. We have attempted the universal cuff and she states at this time it is just too heavy to put on her hand and to bring to her mouth consistently. Finger foods are going much better. The patient needs assistance to bring her drink to her, but she is able to drink from a straw. Grooming: The patient is totally dependent at this point. She cannot move her elbows enough in order to bring hands to her hair or to her face in order to brush her teeth. Bathing: The patient requires max assist. She would be able to assist a minimal amount with her fingers. She does fatigue easily. Dressing upper and lower extremities: The patient requires total assist at this point in time. She is having difficulty using hands to pull pants on to waist level and being able to thread the sleeves of a shirt. At this point the patient is totally dependent with putting shirt over her head. Toileting: The patient requires max assist. She was given toilet tongs; however , she states that it is too painful for her wrists to squeeze the tongs together. She has attempted this a few times, but usually nursing has been doing this for her. With transfers to toilet, the patient requires min assist to push her pants down in order to sit on the toilet. She is slightly off balance when making turns. Comprehension/Expression/Social interaction/Memory: 7/7 according to FIM levels. Range of motion: Shoulder range of motion is 0 to 120 degrees bilaterally. It hurts too much in her wrists to raise her shoulders above this. The patient's right elbow is statically placed in the sugar tong brace and the left elbow will bend slightly but not enough to bring her fingers to her face, but she can bring her wrist to her face. We practiced some fine motor skills, just having the patient grasp light weight objects with fingers. We attempted dressing tasks; however, she rates her pain in her wrists as an 8/10 on the verbal analog scale (0=no pain, 10=worst pain) when trying to grasp upper extremity clothing. The patient is having difficulty secondary to limited elbow motion with donning any lower extremity clothing. We tried to have the patient drink from a cup and this was difficult for the patient and she required max assist. We sat and talked about goals and activities to accomplish before the patient has surgery. Short-Term Goals: Patient will be able to feed self with min assist. Patient will be able to groom self as well as take a shower with mod assist. Patient will be able to dress upper and lower extremities with mod assist. Patient will be able to complete toileting with toilet tongs with min assist. Patient will be able to complete a toilet transfer with supervision. Patient will be able to complete a shower transfer with supervision. A: We did make new goals for the patient while she is here in the hospital to work towards improving her independence with ADLs; however, we are somewhat limited with her wrist fractures. The patient will continue to benefit from skilled occupational therapy to address improving her overall ADL abilities. For eating, we are going to make P: Continue seeing patient BID during the week and one time per day over the weekend for transfers, ambulation, and range of motion/strengthening exercises. IRMA
--- NOTE | 2017-02-21 17:58 | ORTHO.PROG ---
Last Taken Vital Signs: Vital Signs - Last Taken Temperature 98.2 F 02/21/17 16:11 Pulse Rate 75 02/21/17 16:11 Respiratory Rate 18 02/21/17 16:11 Blood Pressure 150/63 02/21/17 16:11 Pulse Ox 94 02/21/17 16:11 Subjective: Patient is 6 days out from bilateral wrist fractures she notes her hip is doing well she notes a sensory exam of the left is normal on the right pretty close to normal just a little decreased sensation on the thumb. Objective: Examination shows that the patient's sugar tong splints are in place no evidence of irritation proximally and distally sensory exam good on the left on the right pretty close to normal except for the thumb region. Good digit motion. Good motion of the hip and leg with no pain or discomfort. Assessment: Bilateral wrist fractures status post closed reduction sugar tong splint Plan: Patient will be transferred to nursing facility in [place], [place] area for continued care. Patient will then follow-up with Dr. Minaya at [facility] for further evaluation and treatment as needed. We will send a disc with the patient has x-rays the time of injury and post and also the CT scan of the left wrist. Continue ice elevation pain control follow-up on an as-needed basis.
[2017-02-21] MEDS: Mirtazapine Tab 15 MG TAB PO SCH (20:49)
--- NOTE | 2017-02-21 21:09 | DCSUMMARY ---
Hospitalization Summary Admit Date: 02/16/17 Discharge Date: 02/22/17 Primary Diagnosis:: bilateral wrist fractures Secondary Diagnosis:: Status post closed reduction of bilateral wrist fractures Hospital Course: This very pleasant 56-year-old female who resides in [facility] and was visiting a friend of hers in [place], [place], when she fell and she was admitted with bilateral wrist fractures. She had closed reduction performed under conscious sedation by Dr. Hermosillo, please see his surgical note. She is placed in sugar tong splints bilaterally. Her biggest issue and patient has been her pain control. She does have a history of high pain tolerance and problems with opiate addiction in the past but has been off of opiates for several years prior to this injury. We were able to titrate the patient off of IV pain medications, and now have her on oral medications. However, because of the bilateral wrist fractures, the patient has not been able to tolerate her activities of daily living. She is having trouble dressing herself, toileting, and feeding herself. Her swelling has subsided and she is gaining some motion back in her fingers, and that is helping to some degree, but she still requires physical therapy and occupational therapy, please see their notes. The patient would like to seek another opinion regarding whether not she needs open reduction and internal fixation. Dr. Hermosillo is informing me that at this time he felt that surgery is best done by another provider, preferably a hand specialist. We have been able to arrange an appointment with Dr. Moore with his group on 02/24/2017 at 1 PM. In the meantime we sought out [facility] facility care with skilled level. Patient was accepted today, for admission tomorrow. Interstitial cystitis and peripheral neuropathy remained at her baseline. We also did find the patient had a vitamin D deficiency and gave 50,000 units of vitamin D today, and we'll have her continue that weekly for the next 7 weeks. I've advised her at that point to go to 1 tablet of 1000 or 2000 international units daily. I recommended that she consider getting a bone scan as an outpatient and consider other medications for osteoporosis including, but not limited to, prolia for bisphosphonate. However I have advised her to seek further primary care consultation regarding this. We talked extensively about the fact that the patient is high risk to become addicted to opiates again in this setting, and she should watch and monitor that carefully with her primary care provider and an digital asset specialist if necessary. The patient did develop some high blood pressure issues but I think her pain derived and pain related predominantly. Over the course of the hospital stay, the blood pressures did normalize more readily to systolics of 120s to the 140s. This should be monitored, but at this time I do not think antihypertensive therapy is warranted. She is very excited about the idea of going back home to [place] and being closer to her home setting. She denies any chest pain or shortness of breath. Assessment and Plan: 1. As per discharge assessments noted 2. Disposition: Patient is discharged to [facility] facility 3. Condition on discharge, stable and improved. 4. Diet: regular diet 5. Activities: Ad vickie. and assistance with all activities of daily living, as per PT and OT 6. Follow-Up: 1. Primary care provider should be arranged with the house physician at her [facility] facility within [address] of admission[address]. Minaya, as mentioned at 1 PM on 02/24/2017 7. Medications at the Time of Discharge: Home Medications Medication Instructions Recorded Confirmed Type Duloxetine HCl 20 mg PO DAILY 02/16/17 02/17/17 History Gabapentin [Neurontin] 600 mg PO TID 02/16/17 02/17/17 History Pentosan Polysulfate Sodium 100 mg PO TID 02/16/17 02/17/17 History [Elmiron] Acet/Butalb/Caff 325-50-40 2 tab PO Q4H PRN #60 tablet 02/21/17 Rx [Fioricet] Celecoxib [Celebrex] 200 mg PO BID PRN #60 cap 02/21/17 Rx Diazepam [Valium] 10 mg PO Q8H PRN #30 tab 02/21/17 Rx Docusate Sodium [Colace] 100 mg PO BID #60 cap 02/21/17 Rx Ergocalciferol [Vitamin D] 50,000 iu PO Q7D #7 cap 02/21/17 Rx Gabapentin [Neurontin] 900 mg PO BEDTIME #90 02/21/17 02/17/17 Rx HYDROmorphone Tab [Dilaudid Tab] 4 mg PO Q4H PRN #90 tab 02/21/17 Rx LORazepam Tab [Ativan Tab] 1 mg PO TID PRN #30 tab 08/28/17 Rx Mirtazapine [Remeron] 15 mg PO DAILY #30 02/21/17 02/17/17 Rx oxyCODONE IR Tab [OxyIR Tab] 7.5 - 15 mg PO Q4H PRN #60 tab 02/21/17 Rx Prescriptions were provided for the controlled substances which the patient will be able to bring bottles to the [facility] facility except for Valium as she recently had that filled and she can obtain that from her home in [place]. 8. Time, care, counseling and coordination of care for this discharge is greater than 30 minutes. Exam - Vitals Vital Signs: Vital Signs Temperature 97.0 F Temperature Source Temporal Artery Scan Pulse Rate [Apical] 84 Pulse Rate [Pulse Oximeter 86 Right] Respiratory Rate 18 Blood Pressure [Left Calf] 93/53 Pulse Ox 90 Oxygen Flow Rate 1 Oxygen Delivery Method Room Air Height 5 ft 5 in Weight 140 lb - General General Appearance: POSITIVE: No Acute Distress, Cooperative - Eye Eye Exam: POSITIVE: No Scleral Icterus - ENT ENT Exam: POSITIVE: Mucous Membranes Moist - Respiratory Respiratory Exam: POSITIVE: Clear to Auscultation - Bilaterally, Breathing Non Labored - Cardiovascular Cardiovascular Exam: POSITIVE: RRR, No Murmur, No Clicks, No Gallops, No Rubs, No JVD - GI/Abdominal GI/Abdominal Exam: POSITIVE: Normal Bowel Sounds, Non Tender, Non Distended, Soft - Extremities Extremities Exam: POSITIVE: No Clubbing Present, No Edema Present, No Cyanosis Present Additional Extremities Exam Details: In sugar tong splints bilaterally, I think decreased swelling in her hands bilaterally. Patient is able to move all of her fingers and thumbs. - Neurological Neurological Exam: POSITIVE: Alert, Oriented x 3, No Facial Droop, Speech Intact / Clear, Moves All Extremities Equally (Difficult to test the upper extremities for strength given the injuries that she's had acutely.) Data Perinent Studies: Laboratory Results 02/17/17 02/19/17 02/19/17 Range/Units 08:30 09:15 09:20 WBC 5.40 4.89 (4.8-10.8) 10^3/uL RBC 3.11 L 3.48 L (4.20-5.40) 10^6/uL Hgb 8.9 L 10.3 L (12.0-16.0) g/dL Hct 28.7 L 31.0 L (37.0-47.0) % MCV 92.3 89.1 (81-99) FL MCH 28.6 29.6 (27-31) PG MCHC 31.0 L 33.2 (33-37) g/dL RDW Std Deviation 47.1 45.6 (39-50) fL RDW Coeff of Sharon 14.5 14.4 (11.5-14.5) % Plt Count 232 256 (140-350) 10*3/uL MPV 9.5 9.7 (7.4-12.2) FL Immature Gran % (Auto) 0.2 (0-5) % Neut % (Auto) 63.7 (50-80) % Lymph % (Auto) 26.9 (10-50) % Lincoln % (Auto) 8.1 (5-15) % Eos % (Auto) 0.4 (0-8) % Baso % (Auto) 0.7 (0-1) % Immature Gran # (Auto) 0.01 10*3/UL Neut # (Auto) 3.44 10*3/UL Lymph # (Auto) 1.45 10*3/uL Lincoln # (Auto) 0.44 (0.3-0.8) 10*3/UL Eos # (Auto) 0.02 10*3/UL Baso # (Auto) 0.04 10*3/UL WBC Morphology Comment Normal morphology (NORM) Plt Morphology Comment Normal morphology (NORM) RBC Morph Comment Normal morphology (NORM) Sodium 136 137 (135-145) meq/L Potassium 3.4 L 3.6 L (3.8-5.2) meq/L Chloride 108 106 (98-112) meq/L Carbon Dioxide 22 L 24 (23-33) meq/L Anion Gap 6 7 (5-20) BUN 15 16 (7-22) mg/dL Creatinine 0.6 0.6 (0.50-1.20) mg/dL Estimated GFR > 60 > 60 (>60 ml/min/1.73m(2)) BUN/Creatinine Ratio 25.00 H 26.66 H (6-20) Glucose 81 84 (78-110) mg/dL Calculated Osmolality 281.0 283.0 (267-292) mOsm/kg Calcium 8.0 L 8.6 L (8.7-10.7) mg/dL Ferritin 12.50 (12.00-336.70) ng/mL Total Bilirubin 0.4 (0.3-1.2) mg/dL AST 15 (8-39) IU/L ALT 27 (9-52) IU/L Alkaline Phosphatase 44 (38-126) IU/L Total Protein 4.3 L (6.1-8.0) g/dL Albumin 2.4 L (3.5-4.8) g/dL Globulin 1.9 L (2.50-4.10) g/dL Albumin/Globulin Ratio 1.20 L (1.3-2.0) mg/g Vitamin B12 536 (239-931) pg/mL Vitamin D 25-Hydroxy 16.3 L (30-100) NG/ML Serum Folate 18.4 (2.76-20.0) NG/ML Patient Problems - Patient Problem List (1) Wrist fracture, bilateral Current Visit: Yes Status: Acute Qualifiers: Encounter type: initial encounter Fracture type: closed Qualified Description: Closed fracture of both wrists, initial encounter Qualifier Code(s): (S62.101A) Fracture of unspecified carpal bone, right wrist, initial encounter for closed fracture, (S62.102A) Fracture of unspecified carpal bone, left wrist, initial encounter for closed fracture (2) Peripheral neuropathy Current Visit: Yes Status: Acute Qualifiers: Peripheral neuropathy type: polyneuropathy, unspecified Qualified Description: Peripheral polyneuropathy Qualifier Code(s): (G62.9) Polyneuropathy, unspecified (3) Vitamin D deficiency Current Visit: Yes Status: Acute (4) Interstitial cystitis Current Visit: Yes Status: Acute (5) Anemia Current Visit: Yes Status: Chronic Qualifiers: Anemia type: unspecified type Qualified Description: Anemia, unspecified type Qualifier Code(s): (D64.9) Anemia, unspecified (6) Muscle spasm Current Visit: Yes Status: Acute
[2017-02-22] MEDS: oxyCODONE IR Tab 15 MG TAB PO PRN ×3 (01:09→09:11)
[2017-02-22 05:18] VITALS: RESP 18
[2017-02-22 07:03] VITALS: TEMP 97
[2017-02-22] MEDS: GABAPENTIN 300 MG CAPSULE PO SCH (09:11)
[2017-02-22] MEDS: PENTOSAN POLYSULFATE 100 MG PO SCH (09:12)
[2017-02-22] MEDS: Potassium Chloride Tab 10 MEQ TAB PO SCH (09:12)
[2017-02-22] MEDS: CELECOXIB 200 MG CAPSULE PO SCH (09:12)
[2017-02-22] MEDS: DULOXETINE HCL 20 MG PO SCH (09:12)
[2017-02-22] MEDS: DOCUSATE 100 MG CAPSULE PO SCH (09:12)
[2017-02-22] MEDS: Multivitamin Tab 1 TAB PO SCH (09:12)
[2017-02-22] MEDS: Calcium/Vit D 600mg/400u Tab 1 TAB TABLET PO SCH (09:12)
--- NOTE | 2017-02-22 10:58 | PT PM DAY ---
Diagnosis : Bilateral Wrist Fractures PM - Physical Therapy S: The patient reports the nursing staff and physicians are still working hard on getting her transferred to a facility closer to home in [facility]. She also states the earliest appointment she can get with Dr. Urrutia, who she would like to see for her wrist, is on March 10. Overall she is still frustrated with still being here in [place]; although she is pleased with the care that she is receiving. She would like to see a hand specialist as soon as possible due to her bilateral wrists needing surgery. O: Following occupational therapy the patient received an application of moist heat pack x20 minutes including set up to her right hip. She performed therapeutic exercises and functional activities including four way red theraband ankle exercises in all directions x1 minute each, minute drills in unsupported seated position with 0 pounds x3, balance drill activities in all planes both forward and backward with gait belt and stand by assist with verbal cues. She was able to ambulate all the way back up to her room where she received neuromuscular reeducation in the form of Kinesio taping with space correction to the right SI joint area. A: Following completion of therapy, Dr. Herrera came in to the patient's room and stated that an earlier appointment with Dr. Minaya was on and that the possibility of her being transferred to a facility in [facility] was very possible either later today or tomorrow. P: Continue seeing patient BID during the week and one time per day over the weekend until discharge. MTDD
[2017-02-28] MEDS ORDERED: ERGOCALCIFEROL 50,000 IU CAPSULE PO SCH (10:00)
== END 2017-02-22 09:33 ==
LOC: ER 18:49 → SDSC 22:55 → UNDOADMOB 02-16 00:22 → MED/SURG 02-16 00:22
PROVIDERS: ADMIT Orthopaedic Surgery; ATTEND Orthopaedic Surgery